=== PATIENT | female | born 1995 | race Two or more races ===

== ENCOUNTER 2016-05-12 14:49 | Inpatient (IN) | payer OTHER ==
[2016-05-12 15:31] VITALS: BMI 22.6
--- NOTE | 2016-05-12 16:26 | HP ---
COWS - Scale Resting Pulse: 2= [place] 101-120 Sweatin=Flushed/Facial Moisture Restless Observation: 1= Difficult to Sit Still Pupil Size: 2= Moderately Dilated Bone or Joint Aches: 1= Mild Discomfort Runny Nose/ Eye Tearin= Nasal Congestion GI Upset > 30mins: 1= Stomach Cramp Tremor Observation: 2= Slight Tremor Visible Yawning Observation: 0= None Anxiety or Irritability: 2=Irritable/Anxious Goose Flesh Skin: 0=Smooth Skin COWS Score: 14 CIWA Score - CIWA Score Nausea/Vomitin-No Nausea/No Vomiting Muscle Tremors: 3 Anxiety: 4-Mod. Anxious/Guarded Agitation: 3 Paroxysmal Sweats: 3 Orientation: 0-Oriented Tacttile Disturbances: 0-None Auditory Disturbances: 0-None Visual Disturbances: 0-None Headache: 0-None Present CIWA-Ar Total Score: 13 Admission ROS BHS - HPI Chief Complaint: WITHDRAWAL SX. Allergies/Adverse Reactions: Allergies Allergy/AdvReac Type Severity Reaction Status Date / Time No Known Allergies Allergy Verified 05/12/16 15:23 History of Present Illness: 20 Y/O WOMAN WITH A LONG HX. OF DRUG DEPENDENCE IS ADMITTED FOR DETOX.PT. HAS BEEN IN PREVIOUS DETOX, BUT NEVER COMPLETED. Exam Limitations: No Limitations - Ebola screening Have you traveled outside of the country in the last 21 days: No Have you had contact with anyone from an Ebola affected area: No Have you been sick,other than usual withdrawal symptoms: No Do you have a fever: No - Review of Systems Constitutional: Diaphoresis EENT: reports: Nose Congestion Respiratory: reports: No Symptoms reported Cardiac: reports: No Symptoms Reported GI: reports: Abdominal cramping Musculoskeletal: reports: Muscle Pain Integumentary: reports: Sweating Neuro: reports: Tremors Endocrine: reports: No Symptoms Reported Hematology: reports: No Symptoms Reported Psychiatric: reports: No Sypmtoms Reported Other Systems: Reviewed and Negative Patient History - Patient Medical History Hx Anemia: No Hx Asthma: No Hx Chronic Obstructive Pulmonary Disease (COPD): No Hx Cancer: No Hx Cardiac Disorders: No Hx Congestive Heart Failure: No Hx Hypertension: No Hx Hypercholesterolemia: No Hx Pacemaker: No HX Cerebrovascular Accident: No Hx Seizures: No Hx Dementia: No Hx Diabetes: No Hx Gastrointestinal Disorders: No Hx Liver Disease: No Hx Genitourinary Disorders: No Hx Sexually Transmitted Disorders: Yes (CHLAMYDIA,HSV TYPE II) Hx Renal Disease (ESRD): No Hx Thyroid Disease: No Hx Human Immunodeficiency Virus (HIV): No Hx Hepatitis C: No Hx Depression: Yes (WAS ON SEROQUEL THEN ABILIFY IN THE PAST.NO MEDS IN 7 YRS) Hx Suicide Attempt: No Hx Bipolar Disorder: No Hx Schizophrenia: No - Patient Surgical History Past Surgical History: No Hx Neurologic Surgery: No Hx Cataract Extraction: No Hx Cardiac Surgery: No Hx Lung Surgery: No Hx Breast Surgery: No Hx Breast Biopsy: No Hx Abdominal Surgery: No Hx Appendectomy: No Hx Cholecystectomy: No Hx Genitourinary Surgery: No Hx Section: No Hx Orthopedic Surgery: No Anesthesia Reaction: No - PPD History Previous Implant?: Yes Documented Results: Negative w/o proof PPD to be Administered?: Yes - Reproductive History Patient is a Female of Child Bearing Age (11 -55 yrs old): Yes Last Menstrual Period: 05/08/16 Patient : No - Smoking Cessation Smoking history: Current some day smoker Have you smoked in the past 12 months: Yes Aproximately how many cigarettes per day: 20 Cigars Per Day: 0 Hx Chewing Tobacco Use: No Initiated information on smoking cessation: Yes 'Breaking Loose' booklet given: 05/12/16 - Substance & Tx. History Hx Alcohol Use: No Hx Substance Use: Yes Substance Use Type: Heroin, Tranquilizers Hx Substance Use Treatment: Yes (DETOX) - Substances Abused Heroin Route: Injection Frequency: Daily Amount used: 4-5 BUNDLE Age of first use: 18 Date of Last Use: 05/12/16 Alprazolam (Xanax) Route: Oral Frequency: Daily Amount used: $30 Age of first use: 17 Date of Last Use: 05/12/16 Methamphetamine Route: Smoking Frequency: 1-2 times per week Age of first use: 19 Date of Last Use: 05/11/16 Family Disease History - Family Disease History Family Disease History: Other: Father (HEROIN & ALCOHOL), Sister (HEROIN & COCAINE ) Admission Physical Exam BHS - Vital Signs Vital Signs: Vital Signs - 24 hr 05/12/16 15:25 Temperature 98.9 F Pulse Rate 108 H Respiratory 16 Rate Blood Pressure 121/71 - Physical General Appearance: Yes: Tremorous, Sweating, Anxious HEENTM: Yes: Nasal Congestion, Rhinorrhea Respiratory: Yes: Chest Non-Tender, Lungs Clear, Normal Breath Sounds Neck: Yes: Supple Breast: Yes: Breast Exam Deferred Cardiology: Yes: Regular Rhythm, Regular Rate, S1, S2 Abdominal: Yes: Normal Bowel Sounds, Non Tender, Soft Genitourinary: Yes: Within Normal Limits Back: Yes: Within Normal Limits Musculoskeletal: Yes: full range of Motion Extremities: Yes: Tremors Neurological: Yes: Fully Oriented, Alert Integumentary: Yes: Diaphoresis Lymphatic: Yes: Within Normal Limits - Diagnostic (1) Amphetamine dependence Current Visit: Yes Status: Acute (2) Opioid dependence with withdrawal Current Visit: Yes Status: Acute (3) Sedative, hypnotic or anxiolytic dependence with withdrawal, uncomplicated Current Visit: Yes Status: Acute Cleared for Admission [facility] - Detox or Rehab [facility] Level of Care: Medically Managed Detox Regimen/Protocol: Methadone/Valium [facility] Breath Alcohol Content Breath Alcohol Content: 0 Urine Pregancy Test - Result Urine Test Results: Negative- NO Line Present Urine Drug Screen - Results Drug Screen Negative: No Urine Drug Screen Results: OPI-Opiates, AMP-Amphetamines, MET-Methamphetamine, MDMA-Ecstasy, BZO-Benzodiazepines, MTD-Methadone, OXY-Oxycodone
[2016-05-12] MEDS ORDERED: METHADONE HCL 10 MG TABLET (FOR DETOX USE ONLY) PO ONE ×2 (16:36→23:00)
[2016-05-12] MEDS ORDERED: diazePAM 5 MG TABLET PO ONE (16:36)
[2016-05-12] MEDS ORDERED: hydrOXYzine PAMOATE 50 MG CAPSULE (FP) PO PRN (16:36)
[2016-05-12] MEDS ORDERED: MAGNESIUM CITRATE 300 ML BOTTLE PO PRN (16:36)
[2016-05-12] MEDS ORDERED: LOPERAMIDE HCL 2 MG CAPSULE PO PRN (16:36)
[2016-05-12] MEDS ORDERED: ACETAMINOPHEN 325 MG TABLET (FP) PO PRN (16:36)
[2016-05-12] MEDS ORDERED: MAGNESIUM HYDROX 2400MG/30ML ORAL SUSPENSION 30 ML CUP PO PRN (16:36)
[2016-05-12] MEDS ORDERED: MAG HYDROX/AL HYDROX/SIMETH 30 ML UNIT-DOSE CUP PO PRN (16:36)
[2016-05-12] MEDS ORDERED: MENTHOL/PHENOL 1 EACH UD MM PRN (16:36)
[2016-05-12] MEDS ORDERED: P-EPHED 60MG/TRIPROLIDI 2.5MG TABLET PO PRN (16:36)
[2016-05-12] MEDS ORDERED: diphenhydrAMINE HCL 50 MG CAPSULE PO PRN (16:36)
[2016-05-12] MEDS ORDERED: guaiFENesin/D-METHORPHAN HB 10 ML UNIT-DOSE CUPS PO PRN (16:36)
[2016-05-12] MEDS ORDERED: IBUPROFEN 400 MG TABLET (FP) PO PRN (16:36)
[2016-05-12] MEDS: NICOTINE 21 MG/24 HOURS TOPICAL PATCH TD SCH (17:04)
[2016-05-12] MEDS ORDERED: THIAMINE HCL 100 MG TABLET (FP) PO SCH (22:00)
[2016-05-12] MEDS: diazePAM 5 MG TABLET PO SCH (22:04)
[2016-05-12] MEDS: NICOTINE POLACRILEX 2 MG GUM BC PRN (22:06)
[2016-05-13] MEDS: diazePAM 5 MG TABLET PO SCH ×2 (05:45→13:26)
[2016-05-13] MEDS: NICOTINE POLACRILEX 2 MG GUM BC PRN (07:35)
[2016-05-13] MEDS ORDERED: PRENATAL VITAMINS W/ FOLIC ACID TABLET (FP) PO SCH (10:00)
[2016-05-13] MEDS ORDERED: METHADONE HCL 10 MG TABLET (FOR DETOX USE ONLY) PO SCH (10:00)
[2016-05-13] MEDS: NICOTINE 21 MG/24 HOURS TOPICAL PATCH TD SCH (10:07)
[2016-05-13] MEDS: diazePAM 5 MG TABLET PO PRN ×2 (10:09→17:02)
--- NOTE | 2016-05-13 10:13 | PN ---
[facility] CIWA - CIWA Score Nausea/Vomitin-No Nausea/No Vomiting Muscle Tremors: 3 Anxiety: 4-Mod. Anxious/Guarded Agitation: 4-Moderately Restless Paroxysmal Sweats: 3 Orientation: 0-Oriented Tacttile Disturbances: 0-None Auditory Disturbances: 0-None Visual Disturbances: 0-None Headache: 0-None Present CIWA-Ar Total Score: 14 BHS COWS - Scale Resting Pulse: 1= [place] 81-100 Sweatin=Flushed/Facial Moisture Restless Observation: 1= Difficult to Sit Still Pupil Size: 0= Normal to Room Light Bone or Joint Aches: 2= Severe Diffuse Aches Runny Nose/ Eye Tearin= Runny Nose/Eyes GI Upset > 30mins: 1= Stomach Cramp Tremor Observation of Outstretched Hands: 2= Slight Tremor Visible Yawning Observation: 2= >3x During Session Anxiety or Irritability: 2=Irritable/Anxious Goose Flesh Skin: 0=Smooth Skin COWS Score: 15 [facility] Progress Note (SOAP) Subjective: shakes sweats agitation restless interrupted sleep tired Objective: 05/13/16 10:06 Vital Signs Temperature 97.9 F 05/13/16 06:00 Pulse Rate 88 05/13/16 06:00 Respiratory Rate 16 05/13/16 06:00 Blood Pressure 105/65 05/13/16 06:00 O2 Sat by Pulse Oximetry (%) labs pending awake/alert ambulating no acute distress Assessment: 05/13/16 10:13 withdrawal sx Plan: continue detox increase fluids labs pending
[2016-05-13 10:14] LABS: MCH 29.9 pg (25.7-33.7); MCHC 33.7 g/dl (32.0-36.0); MEAN CELL VOLUME 88.5 fl (80-96); MEAN PLT VOLUME 8.3 fl (7.5-11.1); PLATELET COUNT 342 K/MM3 (134-434); RDW 13.7 % (11.6-15.6); WHITE BLOOD COUNT 8.4 K/mm3 (4.0-10.0)
[2016-05-13 10:43] LABS: ALBUMIN 3.5 g/dl (3.4-5.0); ANION GAP 7 (8-16); CALCIUM 9.4 mg/dL (8.5-10.1); CO2 32 mmol/L (21-32); CREATININE 0.7 mg/dL (0.55-1.02); GLUCOSE,RANDOM 91 mg/dL (74-106); SGPT/ALT 16 U/L (12-78)
[2016-05-13 10:46] LABS: ALK PHOS 88 U/L (45-117); BILIRUBIN,TOTAL 0.9 mg/dL (0.2-1.0); SGOT/AST 15 U/L (15-37); TOT PROT 7.7 g/dl (6.4-8.2)
--- NOTE | 2016-05-13 11:06 | EKG ---
Test Reason : Blood Pressure : / mmHG Vent. Rate : 081 BPM Atrial Rate : 081 BPM P-R Int : 168 ms QRS Dur : 090 ms QT Int : 366 ms P-R-T Axes : 060 069 055 degrees QTc Int : 425 ms NORMAL SINUS RHYTHM WITH SINUS ARRHYTHMIA SEPTAL INFARCT , AGE UNDETERMINED ABNORMAL ECG NO PREVIOUS ECGS AVAILABLE Confirmed by BAY GARRETT MD ([id number]) on 05/13/2016 11:06:10 AM Referred By: Confirmed By:BAY GARRETT MD
[2016-05-13 11:08] LABS: URINE APPEARANCE SLCLOUDY; URINE BILIRUBIN NEGATIVE (NEGATIVE); URINE BLOOD 1+ (NEGATIVE); URINE COLOR YELLOW; URINE GLUCOSE (UA) NEGATIVE (NEGATIVE); URINE KETONE NEGATIVE (NEGATIVE); URINE LEUK ESTERASE 2+ (NEGATIVE); URINE NITRITE POSITIVE (NEGATIVE); URINE PROTEIN NEGATIVE (NEGATIVE); URINE UROBILINOGEN 2.0 E.U/dl E.U./dl (0.2-1.0)
[2016-05-13 11:16] LABS: URINE BACTERIA MANY /hpf (NONE SEEN); URINE MUCUS RARE; URINE RBC 4 /hpf (0-3); URINE WBC 47 /hpf (3-5)
--- NOTE | 2016-05-13 11:56 | CONSULT ---
[facility] Psychiatric Consult - Data Date of interview: 05/13/16 Admission source: [facility] Identifying data: First admission to [facility] for this 20 y/o female seeking detox treatment on for heroin,benzodiazepine (xanax),alcohol and methamphetamine dependence.Patient is without children,domiciled, unemployed and supported by relatives. Substance Abuse History: - Smoking Cessation. Smoking history: Current some day smoker. Have you smoked in the past 12 months: Yes. Aproximately how many cigarettes per day: 20. Cigars Per Day: 0. Hx Chewing Tobacco Use: No. Initiated information on smoking cessation: Yes. 'Breaking Loose' booklet given : 05/12/16. - Substance & Tx. History. Hx Alcohol Use: No. Hx Substance Use: Yes. Substance Use Type: Heroin, Tranquilizers. Hx Substance Use Treatment: Yes (DETOX). - Substances Abused. Heroin. Route: Injection. Frequency: Daily. Amount used: 4-5 BUNDLE. Age of first use: 18. Date of Last Use: 05/12. Alprazolam (Xanax). Route: Oral. Frequency: Daily. Amount used: $ 30. Age of first use: 17. Date of Last Use: 05/12/16. Methamphetamine. Route: Smoking. Frequency: 1-2 times per week. Age of first use: 19. Date of Last Use: 05/11/16. Confirmed by patient. Medical History: Remarkable for a history of treatment for chlamydia HSV-type II. Psychiatric History: Distant history of one psychiatric admission to [facility] at age 12.Diagnosed,at the time,with MDD and Anxiety Disorder.Brief exposure to seroquel and aripriprazole (off these drugs for more than seven years).No reported history of suicide attempts.No recent history of OPD care (last saw a psychiatrist a few months after diuscharge from [address] [place] [address]). Physical/Sexual Abuse/Trauma History: Patient denies. Additional Comment: Urine Drug Screen Results: OPI-Opiates, AMP-Amphetamines, MET-Methamphetamine, MDMA-Ecstasy, BZO-Benzodiazepines, MTD-Methadone, OXY- Oxycodone.Noted. Mental Status Exam - Mental Status Exam Alert and Oriented to: Time, Place, Person Cognitive Function: Good Patient Appearance: Well Groomed Mood: Hopeful, Euthymic Affect: Appropriate, Normal Range Patient Behavior: Fatigued, Appropriate, Cooperative Speech Pattern: Clear Voice Loudness: Normal Thought Process: Intact Thought Disorder: Not Present Hallucinations: Denies Suicidal Ideation: Denies Homicidal Ideation: Denies Insight/Judgement: Poor Sleep: Poorly, Difficulty falling asleep (requests seroquel at low dose) Appetite: Good Muscle strength/Tone: Normal Gait/Station: Normal Psychiatric Findings - Problem List ([place] 1, 2,3) (1) Amphetamine dependence Current Visit: Yes Status: Acute (2) Opioid dependence with withdrawal Current Visit: Yes Status: Acute (3) Sedative, hypnotic or anxiolytic dependence with withdrawal, uncomplicated Current Visit: Yes Status: Acute (4) Nicotine dependence Current Visit: Yes Status: Acute (5) Insomnia Current Visit: Yes Status: Acute - Initial Treatment Plan Initial Treatment Plan: Psychoeducation.Detoxification in progress.Ambien 5 mg po hs prn (at patient's request).Side effects/benefits discussed with the patient.She agrees with this plan.Observation.
[2016-05-13 17:24] VITALS: BP 109/57; PULSE 93; TEMP 98.1
--- NOTE | 2016-05-13 21:49 | PN ---
[facility] Progress Note Note: INFORMED CLIENT WANTS TO SIGN OUT AMA. PER STAFF CLIENT WANTS TO LEAVE. WITH ANOTHER PATIENT THAT IS SIGNING OUT AMA. CLIENT WAS SEEN. CLIENT STATES " I JUST WANT TO GO HOME", "I DONT FEEL WELL AND I DONT WANT ANYTHING I JUST WANT TO LEAVE. ALTERNATIVE THERAPY/ ADJUVANT THERAPY OFFERED. CLIENT DECLINES AT THIS TIME AND WANTS TO SIGN AMA NOW. RISKS IN INTERRUPTING TXMENT AND FUTURE TXMENT DISCUSSED. CLIENT VERBALIZED UNDERSTANDING. Vital Signs Temperature 98.1 F 05/13/16 17:23 Pulse Rate 93 H 05/13/16 17:23 Respiratory Rate 20 05/13/16 17:23 Blood Pressure 109/57 05/13/16 17:23 O2 Sat by Pulse Oximetry (%)
--- NOTE | 2016-05-13 21:52 | DS ---
[facility] Detox Discharge Summary Admission Date: 05/12/16 Discharge Date: 05/13/16 - History Present History: Opioid Dependence, Sedative Dependence Additional Comments: AMPHETAMINE ABUSE Pertinent Past History: NICOTINE DEPENDENCE - Physical Exam Results Vital Signs: Vital Signs Temperature 98.1 F 05/13/16 17:23 Pulse Rate 93 H 05/13/16 17:23 Respiratory Rate 20 05/13/16 17:23 Blood Pressure 109/57 05/13/16 17:23 O2 Sat by Pulse Oximetry (%) Pertinent Admission Physical Exam Findings: WITHDRAWAL SX'S - Diagnosis (1) Amphetamine dependence Current Visit: Yes Status: Acute (2) Insomnia Current Visit: Yes Status: Acute (3) Nicotine dependence Current Visit: Yes Status: Acute (4) Opioid dependence with withdrawal Current Visit: Yes Status: Acute (5) Sedative, hypnotic or anxiolytic dependence with withdrawal, uncomplicated Current Visit: Yes Status: Acute - AMA Did Patient Leave Against Medical Advice: Yes
[2016-05-13] MEDS ORDERED: ZOLPIDEM TARTRATE 5 MG TABLET PO PRN (22:00)
[2016-05-13] MEDS ORDERED: QUEtiapine FUMARATE 50 MG TABLET PO SCH (22:00)
[2016-05-14] MEDS ORDERED: diazePAM 5 MG TABLET PO SCH (10:00)
[2016-05-14] MEDS ORDERED: METHADONE HCL 5 MG TABLET (FOR DETOX USE ONLY) PO SCH (10:00)
[2016-05-16] MEDS ORDERED: diazePAM 5 MG TABLET PO SCH (10:00)
[2016-05-16] MEDS ORDERED: METHADONE HCL 10 MG TABLET (FOR DETOX USE ONLY) PO SCH (10:00)
[2016-05-17] MEDS ORDERED: METHADONE HCL 5 MG TABLET (FOR DETOX USE ONLY) PO SCH (06:00)
== END 2016-05-13 21:50 | disposition left against medical advice (07) | DRG 770 ==
LOC: EDSEX 14:49 → YASAS 14:49 → Y6N 15:56
PROVIDERS: ADMIT Internal Medicine; ATTEND Internal Medicine Addiction Medicine
PROC: HZ2ZZZZ Detoxification Services for Substance Abuse Treatment (ICD-10-PCS; principal; 2016-05-12)
DX: F11.23 Opioid dependence with withdrawal (principal); F13.230 Sedative, hypnotic or anxiolytic dependence with withdrawal, uncomplicated; F15.20 Other stimulant dependence, uncomplicated; F17.210 Nicotine dependence, cigarettes, uncomplicated; G47.00 Insomnia, unspecified; Z87.42 Personal history of other diseases of the female genital tract
CPT/HCPCS: 36415; 80053; 81003; 81015; 85027; 86593; 93005; 93010

== ENCOUNTER 2023-08-23 10:53 | Inpatient (IN) | payer OTHER ==
[2023-08-23 11:37] VITALS: BMI 24.8
[2023-08-23] MEDS ORDERED: BENZONATATE 200 MG CAPSULE PO PRN (12:17)
[2023-08-23] MEDS ORDERED: NALOXONE HCL 0.4 MG/ML VIAL IM PRN (12:17)
[2023-08-23] MEDS ORDERED: MAGNESIUM HYDROX 2400MG/30ML ORAL SUSPENSION 30 ML CUP PO PRN (12:17)
[2023-08-23] MEDS ORDERED: NICOTINE POLACRILEX 4 MG LOZENGE BC PRN (12:17)
[2023-08-23] MEDS ORDERED: NALOXONE HCL (KLOXXADO) 8 MG SPRAY NS PRN (12:17)
[2023-08-23] MEDS ORDERED: guaiFENesin 600 MG TABLET.ER (FP) PO PRN (12:17)
[2023-08-23] MEDS ORDERED: MAG HYDROX/AL HYDROX/SIMETH 30 ML UNIT-DOSE CUP PO PRN (12:17)
[2023-08-23] MEDS ORDERED: POLYETHYLENE GLYCOL (HEALTHYLAX) 3350 17 GM PACKET PO PRN (12:17)
[2023-08-23] MEDS ORDERED: LOPERAMIDE HCL 2 MG CAPSULE PO PRN (12:17)
[2023-08-23] MEDS ORDERED: IBUPROFEN 400 MG TABLET (FP) PO PRN (12:17)
[2023-08-23] MEDS ORDERED: IBUPROFEN 600 MG TABLET (FP) PO PRN (12:17)
[2023-08-23] MEDS ORDERED: BISMUTH SUBSALICYLATE 524 MG/30 ML PO PRN (12:17)
[2023-08-23] MEDS ORDERED: ONDANSETRON *ODT* 4 MG TABLET SL PRN (12:17)
[2023-08-23] MEDS ORDERED: ACETAMINOPHEN 325 MG TABLET (FP) PO PRN (12:17)
[2023-08-23] MEDS ORDERED: DICYCLOMINE HCL 10 MG CAPSULE PO PRN (12:17)
[2023-08-23] MEDS ORDERED: BENZOCAINE/MENTHOL (CHLORASEPTIC ) LOZENGE MM PRN (12:17)
[2023-08-23] MEDS ORDERED: methaDONE HCL 10 MG TABLET (FOR DETOX USE ONLY) ONE (12:53)
[2023-08-23] MEDS: methaDONE HCL 10 MG TABLET PO ONE (12:57)
[2023-08-23] MEDS ORDERED: methaDONE HCL 10 MG TABLET PO PRN (14:17)
[2023-08-23] MEDS: SULFAMETHOXAZOLE/TRIMETHOPRIM 800MG/160MG D.S. TABLET PO SCH (14:17)
[2023-08-23] MEDS: cloNIDine HCL 0.1 MG TABLET PO SCH (14:40)
[2023-08-23] MEDS: COLLAGENASE CLOSTRIDIUM HIST. 30 GRAMS TUBE TP SCH (15:53)
[2023-08-23] MEDS: hydrOXYzine PAMOATE 25 MG CAPSULE (FP) PO PRN (17:09)
[2023-08-23] MEDS: ASCORBIC ACID 250 MG TABLET (FP) PO SCH (17:41)
[2023-08-23] MEDS: THIAMINE 100 MG TABLET PO SCH (22:30)
[2023-08-23] MEDS: MELATONIN 5 MG TABLETS PO SCH (22:31)
[2023-08-24] MEDS: NICOTINE POLACRILEX 4 MG GUM BUC PRN (05:31)
[2023-08-24] MEDS: PRENATAL VITAMINS W/ FOLIC ACID TABLET (FP) PO SCH (09:47)
[2023-08-24] MEDS: methaDONE 40 MG, methaDONE 10 MG PO ONE (09:50)
[2023-08-24] MEDS: ARIPiprazole 5 MG TABLET PO SCH (10:57)
[2023-08-24] MEDS: traZODone HCL 50 MG TABLET (FP) PO SCH (22:26)
[2023-08-25] MEDS ORDERED: cloNIDine HCL 0.1 MG TABLET PO PRN
[2023-08-25 07:21] VITALS: RESP 16
[2023-08-25] MEDS: methaDONE 40 MG, methaDONE 20 MG PO ONE (09:49)
[2023-08-25] MEDS: METHOCARBAMOL 500 MG TABLET PO PRN (22:17)
[2023-08-26] MEDS ORDERED: methaDONE HCL 10 MG TABLET PO PRN (00:01)
[2023-08-26] MEDS: methaDONE 40 MG, methaDONE 10 MG PO ONE (09:34)
[2023-08-26 09:54] VITALS: BP 118/60; PULSE 70; TEMP 97.6
[2023-08-26] MEDS ORDERED: methaDONE HCL 40 MG DISPERSABLE TABLET PO ONE (10:00)
[2023-08-26] MEDS ORDERED: methaDONE 40 MG, methaDONE 30 MG PO ONE (10:00)
[2023-08-26] MEDS ORDERED: methaDONE HCL 10 MG TABLET PO ONE ×2 (10:00)
[2023-08-26] MEDS ORDERED: methaDONE 40 MG, methaDONE 20 MG PO ONE (10:00)
[2023-08-27] MEDS ORDERED: methaDONE 40 MG, methaDONE 20 MG PO ONE (10:00)
[2023-08-27] MEDS ORDERED: methaDONE HCL 40 MG DISPERSABLE TABLET PO ONE (10:00)
[2023-08-28] MEDS ORDERED: methaDONE HCL 40 MG DISPERSABLE TABLET PO ONE (10:00)
[2023-08-28] MEDS ORDERED: methaDONE 40 MG, methaDONE 20 MG PO ONE (10:00)
[2023-08-28] MEDS ORDERED: methaDONE 80 MG, methaDONE 10 MG PO ONE (10:00)
== END 2023-08-26 12:35 | disposition left against medical advice (07) | DRG 770 ==
LOC: YASAS 10:53 → Y6N 12:56
PROVIDERS: ADMIT Allergy & Immunology; ATTEND Surgery
PROC: HZ2ZZZZ Detoxification Services for Substance Abuse Treatment (ICD-10-PCS; principal; 2023-08-23)
DX: F11.23 Opioid dependence with withdrawal (principal); F10.230 Alcohol dependence with withdrawal, uncomplicated; F15.20 Other stimulant dependence, uncomplicated; F17.210 Nicotine dependence, cigarettes, uncomplicated; F19.24 Other psychoactive substance dependence with psychoactive substance-induced mood disorder; F25.0 Schizoaffective disorder, bipolar type; L03.113 Cellulitis of right upper limb; L97.811 Non-pressure chronic ulcer of other part of right lower leg limited to breakdown of skin; L98.491 Non-pressure chronic ulcer of skin of other sites limited to breakdown of skin
CPT/HCPCS: 80305; 80307; 81025; 93005; 93010